=== PATIENT | female | born 1965 | race Two or more races ===

== ENCOUNTER 2020-02-15 05:50 | Day surgery (SDC) | payer BC ==
[2020-02-15] VITALS (9 sets, daily range): BP systolic 98–120; BP diastolic 56–70
[~2020-02-15] VITALS: Ht 165.1 cm; Wt 59.0 kg
[2020-02-15] MEDS ORDERED: TESTOSTERONE1.25 GM TD (06:21)
[2020-02-15] MEDS ORDERED: PROGESTERONE100 MG PO (06:21)
[2020-02-15] MEDS ORDERED: VITAMIN D PO (06:21)
[2020-02-15] MEDS ORDERED: ZYRTEC10 MG ORAL (06:21)
[2020-02-15] MEDS ORDERED: MULTIVITAMINS1 EAC2 ORAL (06:21)
[2020-02-15] MEDS ORDERED: PROBIOTIC1 EAC2 PO (06:21)
[2020-02-15] MEDS ORDERED: ESTRADIOL1 EAC4 TD (06:21)
[2020-02-15] MEDS ORDERED: VITAMIN C500 M1 ORAL (06:21)
--- NOTE | 2020-02-15 06:27 | Anethesia Preoperative Eval ---
Anesthesia Pre-op PMH/ROS General Date of Evaluation: Feb 15, 2020 Anesthesiologist: Terrell ASA Score: ASA 1 Mallampati Score Class I : Soft palate, uvula, fauces, pillars visible Class II: Soft palate, uvula, fauces visible Class III: Soft palate, base of uvula visible Class IV: Only hard plate visible Mallampati Classification: Class I Surgeon: Nakita Diagnosis: Screening Surgical Procedure: Colonoscopy Anesthesia History: none Family History: no anesthesia problems Allergies: Coded Allergies: MEPERIDINE (Verified Allergy, Severe, RASH , 02/15/20) LATEX (Verified Allergy, Mild, ITCHING , 02/15/20) Medications: see eMAR Patient NPO?: Yes NPO Date: Feb 15, 2020 NPO Time: 00:00 Past Medical History Cardiovascular: Denies: HTN, CAD, UT, valve dz, arrhythmia, other Pulmonary: Denies: asthma, COPD, JOJO, other Gastrointestinal/Genitourinary: Reports: other - hemorrhoids; Denies: GERD, CRI, ESRD Neurologic/Psychiatric: Denies: dementia, CVA, depression/anxiety, TIA, other Endocrine: Denies: DM, hypothyroidism, steroids, other HEENT: Denies: cataract (L), cataract (R), glaucoma, [place] (L), [place] (R), other Hematology/Immune: Denies: anemia, DVT, bleeding disorder, other Musculoskeletal/Integumentary: Denies: OA, RA, DJD, DDD, edema, other PSxH Narrative: septoplasty Anesthesia Pre-op Phys. Exam Physician Exam Last Vital Signs Date Time Temp Pulse Resp B/P (MAP) Pulse Ox O2 Delivery O2 Flow Rate FiO2 02/15/20 06:16 98.2 74 18 109/60 100 Room Air Constitutional: NAD Cardiovascular: RRR Respiratory: CTA Airway Exam Mallampati Score: Class I MO: full ROM: full Anesthesia Pre-op A/P Labs see chart Studies Pre-op Studies: EKG - sr Risk Assessment & Plan Assessment: ASA I Plan: MAC Status Change Before Surgery: No Pre-Antibiotics Drug: N/A Shari Tejada MD Feb 15, 2020 06:27
[2020-02-15] MEDS ORDERED: LR 1000ml 1,000 ML IVLG SCH (06:30)
[2020-02-15] MEDS ORDERED: DiphenhydrAMINE 50mg/ml Inj IVP PRN (06:30)
[2020-02-15] MEDS ORDERED: LR 1000ml ONE (07:00)
[2020-02-15] MEDS ORDERED: Lidocaine 1% MPF 10mg/ml 5ml ONE (07:00)
--- NOTE | 2020-02-15 07:00 | Short Stay Surgery H&P ---
History of Present Illness History of Present Illness Chief Complaint see H&P HPI Lacie Horta is a 54 year old female who was admitted on for Colon Screening Patient History Allergies: Coded Allergies: MEPERIDINE (Verified Allergy, Severe, RASH , 02/15/20) LATEX (Verified Allergy, Mild, ITCHING , 02/15/20) Medication History Scheduled Ascorbic Acid* (Vitamin C*), 500 MG ORAL DAILY, (Reported) Cetirizine Hcl* (Zyrtec*), 10 MG ORAL DAILY, (Reported) Estradiol (Estradiol), 1 EACH TD TWICE A WEEK, (Reported) Lactobacillus Acidophilus (Probiotic), 1 EACH PO DAILY, (Reported) Multivitamins* (Multivitamins*), 1 TAB ORAL DAILY, (Reported) Progesterone,Micronized (Progesterone), 100 MG PO DAILY, (Reported) Testosterone (Testosterone), 1.25 GM TD DAILY, (Reported) [Vitamin D], 1,000 UNITS PO DAILY, (Reported) Physical Exam Vital Signs Last Vital Signs Date Time Temp Pulse Resp B/P (MAP) Pulse Ox O2 Delivery O2 Flow Rate FiO2 02/15/20 06:16 98.2 74 18 109/60 100 Room Air Plan Attestation Are the patient's medical conditions optimized for surgery? Jigar Mace MD Feb 15, 2020 07:00
--- NOTE | 2020-02-15 07:00 | Pre-Procedure Note/Attestation ---
Pre-Procedure Note/Attestation Complete Prior to Procedure Planned Procedure: not applicable Procedure Narrative: colonoscopy Indications for Procedure Pre-Operative Diagnosis: screening Attestation I attest that I discussed the nature of the procedure; its benefits; risks and complications; and alternatives (and the risks and benefits of such alternatives), prior to the procedure, with the patient (or the patient's legal client account representative). I attest that, if there was a reasonable possibility of needing a blood tra nsfusion, the patient (or the patient's legal client account representative) was given the [facility] standardized written summary, pursuant to the [place] Blood Safety Act ([place] Health and Safety Code # 1645, as amended). I attest that I re-evaluated the patient just prior to the surgery and that there has been no change in the patient's H&P, except as documented below: Jigar Mace MD Feb 15, 2020 07:00
--- NOTE | 2020-02-15 07:30 | Immediate Post-Op Evaluation ---
Immediate Post-Op Evalulation Immediate Post-Op Evalulation Procedure: Colonoscopy Date of Evaluation: Feb 15, 2020 Time of Evaluation: 07:34 IV Fluids: 200 Blood Products: 0 Estimated Blood Loss: 0 Urinary Output: 0 Blood Pressure Systolic: 102 Blood Pressure Diastolic: 56 Pulse Rate: 68 Respiratory Rate: 16 O2 Sat by Pulse Oximetry: 100 Temperature (Fahrenheit): 97.9 Pain Score (1-10): 0 Nausea: No Vomiting: No Complications 0 Patient Status: awake, reacts, patent, none Hydration Status: adequate Drug: N/A Shari Tejada MD Feb 15, 2020 07:30
--- NOTE | 2020-02-15 07:31 | 48 Hour Post Anesthesia Eval ---
Post Anesthesia Evaluation Procedure: Colonoscopy Date of Evaluation: Feb 15, 2020 Airway: patent Nausea: No Vomiting: No Pain Intensity: 0 Hydration Status: adequate Cardiopulmonary Status: at baseline Mental Status/LOC: patient returned to baseline Post-Anesthesia Complications: 0 Follow-up care needed: ready to discharge Shari Tejada MD Feb 15, 2020 07:31
--- NOTE | 2020-02-15 09:11 | Endoscopy Procedure Note ---
Endoscopy Procedure Note General Indication for Procedure: screen Procedures Performed: colonoscopy Operative Findings/Diagnosis: dim polyp at 20 - bx Specimen: yes Pt Tolerated Procedure Well: Yes Estimated Blood Loss: none Anesthesia Anesthesiologist: Chris Anesthesia: MAC Medications Medication Given: see anesthesia record Inserted Devices Implant(s) used?: No Quality Quality of Bowel Preparation: Excellent Did scope reach the cecum?: Yes Was there any complications?: No GI Core Measures 50 yrs or older w/o bx or poly: No 10yrs. F/U recommended: No If not recommended, why?: Above average risk 18 years or older w/prev. colo: No Med reason:<3 yrs.: System Reason:<3 yrs.: Last colonoscopy >= to 3yrs: Yes Jigar Mace MD Feb 15, 2020 09:11
--- NOTE | 2020-02-15 09:13 | Brief Operative Note ---
Immediate Post Operative Note Operative Note Chief Complaint: screen Pre-op Diagnosis: screening Procedure: colon bx Post-op Diagnosis: dim polyp at20 bx Surgeon: sandro Anesthesiologist: Chris Anesthesia: MAC Specimen: yes Complications: none Condition: stable Fluids: per anesthesia Estimated Blood Loss: none Drains: none Implant(s) used?: No Jigar Mace MD Feb 15, 2020 09:13
--- NOTE | 2020-02-15 10:15 | Operative Note - Dictated ---
DATE OF OPERATION: 02/15/2020 GASTROENTEROLOGY PROCEDURE REPORT PROCEDURE: Colonoscopy with biopsy. SURGEON: Jigar Mace MD. ANESTHESIA: Dr. Tejada. PRE-ENDOSCOPIC DIAGNOSIS: Screening colonoscopy. POST-ENDOSCOPIC DIAGNOSIS: Diminutive polyp at 20 cm, status post removal. DESCRIPTION OF PROCEDURE: The procedure, its risks, indications, alternatives, and possible complications including but not limited to bleeding, infection, perforation, , and anesthesia complications were explained to the patient and informed consent was obtained. The patient was then sedated in the left lateral decubitus position and a rectal exam was done. The colonoscope was introduced into the rectum and advanced to the terminal ileum for about 10 cm without difficulty. The colonoscope was then gradually withdrawn. The mucosa examined carefully. Examination of the terminal ileum mucosa did not reveal any abnormalities. The colonic lining was normal except for one a very small polyp at 20 cm measuring approximately 3 mm. This was removed by biopsy forceps. Retroflexed view of rectum was unremarkable. The colonoscope was removed and the patient was sent to recovery in good condition. COMPLICATIONS: None. RECOMMENDATIONS: 1. Follow up biopsy results. 2. Outpatient followup. Thank you for asking me to participate in the care of this patient. Jigar Mace M.D. DR: MAYRA JOB#: [id number] CC: Maldonado Castle MD. JIGAR MACE MD. ; FAX#: [phone]
== END 2020-02-15 08:35 | disposition home or self-care (01) ==
LOC: GAS 05:50
DX: Z12.11 Encounter for screening for malignant neoplasm of colon (principal); K63.5 Polyp of colon; Z79.899 Other long term (current) drug therapy; Z91.040 Latex allergy status; Z88.8 Allergy status to other drugs, medicaments and biological substances
CPT/HCPCS: 45380; 94003; J2704; J7120; U0002; 94150